=== PATIENT | female | born 1955 | race African-American/Black ===

== ENCOUNTER 2023-11-03 03:54 | Day surgery (SDC) | payer OTHER ==
[2023-11-02 09:46] VITALS: BMI 25.6
[2023-11-03] MEDS ORDERED: LIDOCAINE HCL/PF 1% SDV 5ML VIAL ONE (07:19)
[2023-11-03 07:35] VITALS: RESP 20
[2023-11-03] MEDS: LIDOCAINE HCL 1% PRESERVATIVE FREE - 30ML VIAL IJ ONE (08:53)
[2023-11-03 09:55] VITALS: BP 150/53; PULSE 60; TEMP 97.8
[2023-11-03] MEDS ORDERED: ACETAMINOPHEN 500 MG TABLET (FP) PO PRN (14:49)
== END 2023-11-03 10:15 | disposition home or self-care (01) ==
LOC: JASU-SURG 03:54
PROVIDERS: ATTEND Pain Medicine Pain Medicine
PROC: 01HY3MZ Insertion of Neurostimulator Lead into Peripheral Nerve, Percutaneous Approach (ICD-10-PCS; principal; 2023-11-03 08:45)
DX: G89.4 Chronic pain syndrome (principal); M25.512 Pain in left shoulder
CPT/HCPCS: 64555; C1778; 82962

== ENCOUNTER 2024-10-11 16:34 | Inpatient (IN) | payer OTHER ==
[2024-10-11] MEDS ORDERED: ALBUTEROL SO4 2.5/IPRATROPIUM 0.5 INH SOL 3 ML VIAL.NEB. NEB ONE (17:14)
[2024-10-11] MEDS ORDERED: methylPREDNISolone NA SUCC 125 MG/2 ML VIAL ONE (17:23)
[2024-10-11] MEDS: methylPREDNISolone NA SUCC 125 MG/2 ML VIAL IVPB ONE (17:43)
[2024-10-11] MEDS: ALBUTEROL SO4 2.5/IPRATROPIUM 0.5 INH SOL 3 ML VIAL.NEB. NEB ONE (17:43)
[2024-10-11 17:47] LABS: VENOUS O2 SATURATION 45.1 % (70-80); VENOUS PCO2 54.2 mmHg (38-52); VENOUS PH 7.33 (7.310-7.410)
[2024-10-11 17:49] LABS: HEMATOCRIT 35.7 % (34.1-44.9); HEMOGLOBIN 11.9 g/dL (11.2-15.7); MCHC 33.3 g/dl (32.2-35.5); MEAN CELL VOLUME 94.9 fl (79.4-94.8); MEAN PLT VOLUME 11.1 fl (9.4-12.3); PLATELET COUNT 126 x10^3/uL (182-369); RDW 12.3 % (12.4-16.6)
[2024-10-11 18:07] LABS: POTASSIUM 4.5 mmol/L (3.5-5.1)
[2024-10-11 18:09] LABS: ALBUMIN 4.1 g/dl (3.4-5.0); BLOOD UREA NITROGEN 21.5 mg/dL (7-18); CALCIUM 9.9 mg/dL (8.5-10.1)
[2024-10-11 18:13] LABS: CREATININE 1.1 mg/dL (0.55-1.3)
[2024-10-11 18:14] LABS: BILIRUBIN,TOTAL 0.7 mg/dL (0.2-1); TOT PROT 7.8 g/dl (6.4-8.2)
[2024-10-11 18:41] LABS: EPI CELLS 8 /uL (0-25.1); HYALINE CASTS 0 /uL (0-3.1); PH,URINE 5.5 (5.0-8.0); URINE APPEARANCE CLEAR; URINE BACTERIA 370 /uL (0-1359); URINE BILIRUBIN NEGATIVE (NEGATIVE); URINE COLOR YELLOW; URINE GLUCOSE (UA) 1+ (NEGATIVE); URINE KETONE NEGATIVE (NEGATIVE); URINE LEUK ESTERASE NEGATIVE (NEGATIVE); URINE NITRITE NEGATIVE (NEGATIVE); URINE PROTEIN 1+ (NEGATIVE); URINE RBC 3 /uL (0-23.9); URINE UROBILINOGEN 0.2 mg/dL (0.2-1.0); URINE WBC 6 /uL (0-25.8)
[2024-10-11] MEDS: INSULIN ASPART SLIDING SCALE (NOVOLOG) 1 VIAL SQ SCH (22:32)
[2024-10-11] MEDS: CARVEDILOL 25 MG TABLET (FP) PO SCH (22:33)
[2024-10-11] MEDS: ROSUVASTATIN CA 20 MG TABLET PO SCH (22:33)
[2024-10-11] MEDS: AZITHROMYCIN IVPB 500 MG/250 ML BAG IVPB ONE (22:34)
[2024-10-11] MEDS: GABAPENTIN 300 MG CAPSULE PO SCH (22:35)
[2024-10-11] MEDS ORDERED: ALBUTEROL SO4 0.083% IH SOL 2.5 MG/3 ML VIAL.NEB. NEB PRN (23:25)
[2024-10-11] MEDS: BRIMONIDINE TARTRATE 0.1% OPHTHALMIC 5 ML BOTTLE OU SCH (23:51)
[2024-10-11] MEDS: NITROFURANTOIN MACROCRYSTAL 50 MG CAPSULE (FP) PO ONE (23:52)
[2024-10-11] MEDS: TIMOLOL 0.5% OPHTHALMIC SOL 5 ML BOTTLE OU SCH (23:52)
[2024-10-12] MEDS: methylPREDNISolone NA SUCC 40 MG/1 ML VIAL IVPUSH SCH (02:36)
[2024-10-12 07:17] LABS: BASOPHILS # 0.01 x10^3/uL (0.01-0.08); EOSINOPHIL % 0.1 % (0.7-5.8); EOSINOPHILS # 0.01 x10^3/uL (0.04-0.36); HEMOGLOBIN 11.4 g/dL (11.2-15.7); MONOCYTE # 0.11 x10^3/uL (0.24-0.86); MONOCYTE % 1.1 % (4.7-12.5); RDW 12.3 % (12.4-16.6)
[2024-10-12 07:19] LABS: ABSOLUTE IMMATURE GRANULOCYTES 0.04 x10^3/uL (0.0-0.031); HEMATOCRIT 34.9 % (34.1-44.9); MCHC 32.7 g/dl (32.2-35.5); MEAN CELL VOLUME 95.6 fl (79.4-94.8); MEAN PLT VOLUME 11.4 fl (9.4-12.3); PLATELET COUNT 124 x10^3/uL (182-369)
[2024-10-12 07:47] LABS: BLOOD UREA NITROGEN 28.2 mg/dL (7-18)
[2024-10-12 07:50] LABS: CREATININE 1.4 mg/dL (0.55-1.3)
[2024-10-12] MEDS ORDERED: LIPASE/PROTEASE/AMYLASE 24,000 UNIT CAPSULE PO SCH (08:00)
[2024-10-12] MEDS: LIPASE/PROTEASE/AMYLASE 24,000 UNIT CAPSULE PO SCH (08:32)
[2024-10-12] MEDS: NICOTINE 21 MG/24 HOURS TOPICAL PATCH TD SCH (09:33)
[2024-10-12] MEDS: SODIUM CHLORIDE 250 ML IV STA (09:34)
[2024-10-12] MEDS: amLODIPine BESYLATE 5 MG TABLET (FP) PO SCH (09:35)
[2024-10-12] MEDS: LISINOPRIL 20 MG TABLET PO SCH (09:35)
[2024-10-12] MEDS: CLOPIDOGREL BISULFATE 75 MG TABLET (FP) PO SCH (09:35)
[2024-10-12] MEDS: HYDROCHLOROTHIAZIDE 12.5 MG CAPSULE (FP) PO SCH (09:36)
[2024-10-12] MEDS: CELECOXIB 100 MG CAPSULE PO SCH (09:36)
[2024-10-12] MEDS: FOLIC ACID 1 MG TABLET (FP) PO SCH (09:36)
[2024-10-12] MEDS: INSULIN GLARGINE (LANTUS) 100 UNITS/ML UNITS SQ SCH ×2 (09:54→22:31)
[2024-10-12] MEDS: FLUTICASONE/UMECLIDIN/VILANTER(200-62.5-25 TRELEGY ELLIPTA) INAHLER IH SCH (10:36)
[2024-10-12] MEDS: SODIUM CHLORIDE 1,000 ML IV SCH (10:47)
[2024-10-12] MEDS: AZITHROMYCIN IVPB 500 MG/250 ML BAG IVPB SCH (10:52)
[2024-10-12] MEDS: BREZTRI PO SCH (13:52)
[2024-10-12] MEDS: [UNRECOGNIZED DRUG - OTHER] PO SCH (13:52)
[2024-10-12] MEDS ORDERED: LUMIGAN OU SCH (20:45)
[2024-10-12] MEDS: INSULIN ASPART SLIDING SCALE (NOVOLOG) 1 VIAL SQ SCH (22:34)
[2024-10-12] MEDS: LUMIGAN OU SCH (22:37)
[2024-10-13] MEDS: INSULIN GLARGINE (LANTUS) 100 UNITS/ML UNITS SQ SCH (21:59)
[2024-10-13] MEDS: INSULIN ASPART SLIDING SCALE (NOVOLOG) 1 VIAL SQ SCH (22:24)
[2024-10-14 08:08] LABS: RDW 12.7 % (12.4-16.6)
[2024-10-14 08:10] LABS: HEMATOCRIT 33.4 % (34.1-44.9); HEMOGLOBIN 10.8 g/dL (11.2-15.7); MCHC 32.3 g/dl (32.2-35.5)
[2024-10-14 08:28] LABS: MEAN PLT VOLUME 11.7 fl (9.4-12.3); PLATELET COUNT 127 x10^3/uL (182-369)
[2024-10-14 08:33] LABS: POTASSIUM 4.4 mmol/L (3.5-5.1)
[2024-10-14 08:41] LABS: BLOOD UREA NITROGEN 26.2 mg/dL (7-18); CALCIUM 9.3 mg/dL (8.5-10.1); MAGNESIUM 2.2 mg/dL (1.8-2.4)
[2024-10-14 08:46] LABS: BILIRUBIN,TOTAL 0.6 mg/dL (0.2-1); TOT PROT 6.8 g/dl (6.4-8.2)
[2024-10-14 08:57] LABS: ALBUMIN 3.2 g/dl (3.4-5.0)
[2024-10-14] MEDS: methylPREDNISolone NA SUCC 40 MG/1 ML VIAL IVPUSH SCH (09:57)
[2024-10-15] MEDS ORDERED: INSULIN (NOVOLOG) ASPART 100 UNITS/ML 10ML VIAL ONE (20:29)
[2024-10-16] MEDS ORDERED: INSULIN (NOVOLOG) ASPART 100 UNITS/ML 10ML VIAL ONE ×3 (05:32→20:48)
[2024-10-16] MEDS: predniSONE 10 MG TABLET (UD) PO SCH (09:30)
[2024-10-16] MEDS: BISACODYL 5 MG TABLET.DR (FP) PO ONE (11:19)
[2024-10-16 14:48] VITALS: BMI 24.7
[2024-10-16] MEDS: MAGNESIUM HYDROX 2400MG/30ML ORAL SUSPENSION 30 ML CUP PO ONE (16:51)
[2024-10-17 21:43] VITALS: TEMP 97.9
[2024-10-18] MEDS: LUMIGAN OU SCH (00:20)
[2024-10-18 07:38] LABS: HEMOGLOBIN 10.8 g/dL (11.2-15.7); MONOCYTE # 0.66 x10^3/uL (0.24-0.86)
[2024-10-18 07:39] LABS: ABSOLUTE IMMATURE GRANULOCYTES 0.07 x10^3/uL (0.0-0.031); BASOPHILS # 0.02 x10^3/uL (0.01-0.08); EOSINOPHIL % 0.6 % (0.7-5.8); EOSINOPHILS # 0.05 x10^3/uL (0.04-0.36); HEMATOCRIT 33.6 % (34.1-44.9); MCHC 32.1 g/dl (32.2-35.5); MEAN CELL VOLUME 96.8 fl (79.4-94.8); MEAN PLT VOLUME 11.8 fl (9.4-12.3); MONOCYTE % 8.5 % (4.7-12.5); PLATELET COUNT 139 x10^3/uL (182-369); RDW 12.8 % (12.4-16.6)
[2024-10-18 08:06] LABS: POTASSIUM 4.1 mmol/L (3.5-5.1)
[2024-10-18 08:31] LABS: CALCIUM 9.9 mg/dL (8.5-10.1)
[2024-10-18 08:32] LABS: BLOOD UREA NITROGEN 32.3 mg/dL (7-18)
[2024-10-18 08:35] LABS: CREATININE 1.1 mg/dL (0.55-1.3)
[2024-10-18 08:36] LABS: BILIRUBIN,TOTAL 0.4 mg/dL (0.2-1)
[2024-10-18 10:18] VITALS: BP 131/49; PULSE 68; RESP 18
== END 2024-10-18 10:51 | disposition home health service (06) | DRG 191 ==
LOC: JER 16:34 → JERBED 16:58 → J7W 20:53 → OBSVTOIN 10-14 12:18
PROVIDERS: ADMIT Family Medicine; ATTEND Family Medicine
DX: J44.1 Chronic obstructive pulmonary disease with (acute) exacerbation (principal); J45.901 Unspecified asthma with (acute) exacerbation; N17.9 Acute kidney failure, unspecified; R09.02 Hypoxemia; E11.22 Type 2 diabetes mellitus with diabetic chronic kidney disease; E11.51 Type 2 diabetes mellitus with diabetic peripheral angiopathy without gangrene; E78.5 Hyperlipidemia, unspecified; I12.9 Hypertensive chronic kidney disease with stage 1 through stage 4 chronic kidney disease, or unspecified chronic kidney disease; N18.9 Chronic kidney disease, unspecified; I70.229 Atherosclerosis of native arteries of extremities with rest pain, unspecified extremity; B35.1 Tinea unguium; H40.9 Unspecified glaucoma
CPT/HCPCS: 0241U-QW; 36415; 71045-TC-FY; 71250-TC; 80048; 80053; 81003; 82803; 82962; 83735; 84484; 85025; 85027; 87040; 87086; 87635; 93005; 93010; 93880-TC; 93922; 93926-TC; 97116-GP; 97162-GP; 99285-25; G0378